=== PATIENT | female | born 1990 | race African-American/Black ===

== ENCOUNTER 2017-12-13 15:55 | Emergency (ER) | payer OTHER, SELFPAY ==
--- NOTE | 2017-12-13 16:33 | RAD ---
PORTABLE AP CHEST X-RAY: 12/13/17 HISTORY: Chest pain. COMPARISON: None available. FINDINGS: The cardiac silhouette and pulmonary vasculature are within normal limits. Lungs are clear. osseous s tructures are intact. IMPRESSION: No acute cardiopulmonary process. POS: [facility]
[2017-12-13 17:23] LABS: #Basophils 0.1 thou/uL (0.0-0.2); #Eosinphils 0.1 thou/uL (0.0-0.7); #Monocytes 0.5 thou/uL (0.11-0.59); #Neutrophils 3.6 thou/uL (1.40-6.50); %Basophils 1.1 % (0.0-1.0); %Eosinophils 1.4 % (0.0-10.0); %Lymphocytes 41.1 % (21.0-51.0); %Neutrophils 49.4 % (42.0-75.0); Hemoglobin 13.6 g/dL (12.0-16.0); Mean Corpuscular Hemoglobin 32.2 pg (27.0-31.0); Mean Corpuscular Volume 94.5 fL (78.0-98.0); Mean Platelet Volume 6.6 fL (7.4-10.4); Platelet Count 306 thou/uL (130-400); RBC Distribution Width 11.4 % (11.5-14.5); Red Blood Cell (RBC) Count 4.22 mill/uL (4.20-5.40); White Blood Cell (WBC) Count 7.3 thou/uL (4.8-10.8)
[2017-12-13 17:47] LABS: ALT (SGPT) 8 U/L (8-55); AST (SGOT) 17 U/L (5-34); Albumin 4.2 g/dL (3.5-5.0); Alkaline Phosphatase 67 U/L (40-150); Anion Gap 11 mmol/L (10-20); BUN (Urea Nitrogen) 14 mg/dL (7.0-18.7); Bilirubin, Total 0.4 mg/dL (0.2-1.2); CK (CPK) 104 U/L (29-168); Calc. Creatinine Clearance 0 mL/min (70-130); Calcium 9.5 mg/dL (7.8-10.44); Carbon Dioxide 25 mmol/L (22-29); Chloride 105 mmol/L (98-107); Estimated GFR-MDRD 85; Globulin 2.8 g/dL (2.4-3.5); Glucose 86 mg/dL (70-105); Potassium 3.9 mmol/L (3.5-5.1); Sodium 137 mmol/L (136-145)
[2017-12-13 17:50] LABS: CKMB 0.5 ng/mL (0-6.6); Troponin I Less than 0.010 ng/mL (< 0.028)
[2017-12-13] MEDS ORDERED: Ketorolac Tromethamine 60 MG/2 ML VIAL ONE (18:10)
--- NOTE | 2017-12-15 18:09 | EKG ---
Test Reason : Blood Pressure : / mmHG Vent. Rate : 099 BPM Atrial Rate : 099 BPM P-R Int : 188 ms QRS Dur : 080 ms QT Int : 350 ms P-R-T Axes : 059 024 025 degrees QTc Int : 449 ms Normal sinus rhythm Normal ECG Confirmed by ALONZO SHEN D.O. ([id number]), associate editor BERTO CALIX ([id number]) on 12/15/2017 6:09:11 PM Referred By: Confirmed By:ALONZO SHEN D.O.
== END 2017-12-13 18:39 | disposition home or self-care (01) ==
LOC: ERS 15:55
DX: R07.89 Other chest pain (principal); F17.210 Nicotine dependence, cigarettes, uncomplicated
CPT/HCPCS: 36415; 71045; 80053; 82550; 82553; 84484; 85025; 93005; 96372; J1885

== ENCOUNTER 2018-08-19 12:01 | Emergency (ER) | payer SELFPAY | END 2018-08-19 12:42 | disposition home or self-care (01) | LOC: SCSER 12:01 | DX: M25.552 Pain in left hip (principal); F17.210 Nicotine dependence, cigarettes, uncomplicated; V49.9XXA Car occupant (driver) (passenger) injured in unspecified traffic accident, initial encounter; V43.92XA Unspecified car occupant injured in collision with other type car in traffic accident, initial encounter | CPT/HCPCS: 99283 ==

== ENCOUNTER 2020-03-26 11:32 | Emergency (ER) | payer OTHER, SELFPAY ==
[2020-03-26 17:14] LABS: SARS-CoV-2 PCR by NAA DETECTED (NotDetected)
== END 2020-03-26 12:38 | disposition home or self-care (01) ==
LOC: ERS 11:32
DX: U07.1 COVID-19 (principal); F17.210 Nicotine dependence, cigarettes, uncomplicated
CPT/HCPCS: 87635; 99284; U0003; U0005

== ENCOUNTER 2020-05-21 13:56 | Emergency (ER) | payer OTHER, SELFPAY | END 2020-05-21 19:09 | disposition left against medical advice (07) | LOC: ERS 13:56 | DX: Z53.21 Procedure and treatment not carried out due to patient leaving prior to being seen by health care provider (principal) | CPT/HCPCS: 36415; 80053; 81003; 84702; 85025 ==

== ENCOUNTER 2021-07-14 18:59 | Emergency (ER) | payer OTHER, SELFPAY ==
[2021-07-14] MEDS ORDERED: Morphine 4 MG/ML VIAL ONE (19:55)
[2021-07-14] MEDS ORDERED: Boostrix 0.5 ML (Tdap) VIAL ONE (19:55)
[2021-07-14] MEDS ORDERED: Lidocaine 1% (PF) 30 ML VIAL ONE (20:40)
== END 2021-07-14 22:12 | disposition home or self-care (01) ==
LOC: ERS 18:59
DX: S61.412A Laceration without foreign body of left hand, initial encounter (principal); F17.210 Nicotine dependence, cigarettes, uncomplicated; Z23 Encounter for immunization; V89.2XXA Person injured in unspecified motor-vehicle accident, traffic, initial encounter
CPT/HCPCS: 12004; 90471; 90715; 96372; J2001; J2270

== ENCOUNTER 2022-01-05 13:39 | Outpatient (CLI) | payer OTHER | END 2022-01-05 13:40 | disposition home or self-care (01) | LOC: BICULT 13:39 | PROVIDERS: ATTEND Family Medicine | DX: O09.42 Supervision of pregnancy with grand multiparity, second trimester (principal); Z3A.18 18 weeks gestation of pregnancy | CPT/HCPCS: 76805 ==